=== PATIENT | male | born 1985 | race Caucasian/White ===

== ENCOUNTER 2019-11-11 08:18 | Outpatient (CLI) | payer OTHER, SELFPAY ==
--- NOTE | ~2019-11-11 | XR_ITS ---
EXAMINATION: HAND-REY ARTHRITIS 3+VIEWS DATE: 11/11/2019 08:39 INDICATION: Joint pain at the bilateral hands. TECHNIQUE: Posteroanterior, lateral, and oblique views of the left and of the right hands as well as a ball-catcher's view of both hands were obtained. COMPARISON: Right hand radiographs dated 07/09/2019 FINDINGS: Bone alignment is normal at both hands. No fractures. Joint spaces are normal throughout both hands w ith no evident erosions or osteophytosis. Soft tissues are unremarkable. IMPRESSION: 1. Normal bilateral hand radiographs. Reviewed, dictated and finalized at location A.
[2019-11-11 09:02] LABS: Basophils Absolute Auto 0.1 K/mm3 (0.0-0.1); Basophils Percent Auto 0.5 % (0.2-1.2); Eosinophils Absolute Auto 0.2 K/mm3 (0-0.3); Eosinophils Percent Auto 2.5 % (0-4.4); Hematocrit 45.6 % (42.0-52.0); Hemoglobin 14.7 g/dL (14.0-18.0); Immature Granulocyte Absolute 0.02 K/mm3 (0.00-0.031); Immature Granulocyte Percent A 0.2 % (0-0.5); Lymphocytes Absolute Auto 3.68 K/mm3 (0.9-3.2); Lymphocytes Percent Auto 40.1 % (18.3-44.2); Mean Corpuscular HGB Conc 32.2 g/dl (32-36); Mean Corpuscular Hemoglobin 27.8 pg (26-34); Mean Corpuscular Volume 86.2 fl (80-100); Mean Platelet Volume 9.9 fl (7.4-10.4); Monocytes Absolute Auto 0.6 K/mm3 (0.1-0.6); Monocytes Percent Auto 6.9 % (2.6-8.5); Neutrophils Absolute Auto 4.6 K/mm3 (1.3-6.7); Neutrophils Percent Auto 49.8 % (45.5-73.1); Platelet Count Result 282 k/mm3 (150-375); Red Blood Count 5.29 M/mm3 (4.6-6.20); Red Cell Distribution Width 12.8 % (11.5-14.5); White Blood Count 9.2 K/mm3 (4.5-10.0)
[2019-11-11 09:52] LABS: Erythrocyte Sedimentation Rate 7 mm/hr (0-20)
[2019-11-11 10:01] LABS: Alanine Aminotransferase 45 U/L (4-50); Albumin Level 4.6 g/dL (3.5-5.1); Alkaline Phosphatase 106 U/L (38-126); Aspartate Amino Transferase 39 U/L (17-59); Bilirubin,Total 0.3 mg/dL (0.2-1.3); Blood Urea Nitrogen 12 mg/dL (9-20); CRP 1.5 mg/dL (<1.0); Calcium 9.2 mg/dL (8.4-10.2); Carbon Dioxide 27 mmol/L (22-30); Chloride 106 mmol/L (98-107); Estimated Glomerular Filt Rate > 60; Glucose 96 mg/dL (75-110); Potassium 4.1 mmol/L (3.4-5.0); Sodium 139 mmol/L (137-145); Uric Acid 8.5 mg/dL (3.5-8.5)
== END 2019-11-11 08:19 | disposition home or self-care (01) ==
PROVIDERS: PCP Family Medicine; Visit Provider Family Medicine
DX: M79.643 Pain in unspecified hand (principal)
CPT/HCPCS: 36415; 73130; 80053; 82607; 82746; 84443; 84550; 85025; 85652; 86038; 86140

== ENCOUNTER 2020-03-09 10:40 | Outpatient (CLI) | payer BC, OTHER, SELFPAY ==
--- NOTE | ~2020-03-09 | XR_ITS ---
XR lumbar spine 2-3V 03/09/2020 11:01 Indication: Low back pain. Procedure: 3 views lumbar spine Comparison: No prior studies for comparison. Findings: No fracture, subluxation or dislocation. Vertebral body and disc heights are preserved. No evidence for spondylolysis or spondylolisthesis. Pedicles intact. Sacral foramen are symmetric. Impression: 1: No significant abnormality of the lumbar spine. Reviewed, dictated and finalized at location B. Impression: 1: No significant abnormality of the lumbar spine.
== END 2020-03-09 10:41 | disposition home or self-care (01) ==
PROVIDERS: PCP Family Medicine; Visit Provider Family Medicine
DX: M54.9 Dorsalgia, unspecified (principal); R20.0 Anesthesia of skin
CPT/HCPCS: 72100

== ENCOUNTER 2020-08-03 08:17 | Outpatient (CLI) | payer BC, SELFPAY ==
--- NOTE | ~2020-08-03 | MR_ITS ---
EXAMINATION: MR ankle LT wo con DATE: 08/03/2020 08:58 INDICATION: Unexplained plantar fasciitis presenting with lateral left heel pain. TECHNIQUE: Magnetic resonance imaging (MRI) of the left ankle was performed without intravenous contr ast. Sequences included sagittal, coronal, and axial proton-density weighted fast spin echo without a nd with fat saturation. COMPARISON: None. FINDINGS: Medial ankle ligaments: Deep and superficial deltoid ligaments as well as the spring ligament are normal. Lateral ankle ligaments: The anterior and posterior inferior tibiofibular ligaments are normal. The anterior talofibular, calc aneofibular and posterior talofibular ligaments are normal. Tendons: Achilles tendon is normal. The peroneus longus and brevis tendons are normal. The tibialis anterior a nd extensor hallucis longus and extensor digitorum longus tendons are normal. The tibialis posterior, flexor digitorum longus and flexor hallucis longus tendons are normal. Plantar fascia: Minimal marrow and soft tissues edema at the calcaneal insertion of the otherwise normal plantar apon eurosis consistent with very mild enthesitis. No tear of the plantar aponeurosis. Bones/other: Bone marrow signal is otherwise normal throughout. No fracture or pathologic marrow replacing process . Bone alignment is normal. Joint spaces are normal with no erosions. Fluid: Physiologic amount fluid in the joint spaces no tenosynovitis, bursitis or other abnormal fluid colle ctions. IMPRESSION: 1. Very mild enthesitis at the calcaneal origin of the plantar aponeurosis. Reviewed, dictated and finalized at location A. [employer]
== END 2020-08-03 08:18 ==
PROVIDERS: PCP Family Medicine; Visit Provider Podiatrist Foot & Ankle Surgery
DX: M72.2 Plantar fascial fibromatosis (principal); M77.8 Other enthesopathies, not elsewhere classified
CPT/HCPCS: 73721

== ENCOUNTER → 2020-10-10 03:42 | Outpatient (CLI) | payer BC, SELFPAY ==
[2020-10-10 20:31] LABS: SARS-CoV-2 RNA PCR Negative
== END ==
PROVIDERS: PCP Family Medicine; Visit Provider Podiatrist Foot & Ankle Surgery
DX: Z01.812 Encounter for preprocedural laboratory examination (principal); Z20.822 Contact with and (suspected) exposure to COVID-19
CPT/HCPCS: C9803; U0003; U0005

== ENCOUNTER 2020-10-13 01:44 | Day surgery (SDC) | payer BC, SELFPAY ==
[2020-10-04 08:40] VITALS: BMI 45.6
[2020-10-13] VITALS (8 sets, daily range): BP systolic 126–140; BP diastolic 75–90; PULSE 84–96; RESP 17–20; TEMP 36.6–36.7; O2SAT 93–100; BMI 46.3
--- NOTE | 2020-10-13 06:49 | WPDANESEPPF ---
Anes - Initial Pre Proc Eval Procedure: Operation Date: 10/13/20 07:30 Proposed Procedures p Partial Plantar Fasciectomy, Left Foot - John Jc JR, MD Date/Time: 10/13/20 06:49 Surgeon: John Jc JR, MD Pre Op Diagnosis: chronic plantar fasciitis left foot Patient Data Age: 35 Gender: M Height: 5 ft 8 in Weight: 138.1 kg Allergies Allergy/AdvReac Type Severity Reaction Status Date / Time tramadol AdvReac Unknown Vomiting Verified 10/13/20 06:09 Home Medications Medication Instructions Recorded Confirmed Type fexofenadine 180 mg tablet 180 mg PO BID 06/09/19 10/13/20 History naproxen sodium 220 mg tablet 220 mg PO BID PRN 03/07/20 10/13/20 History duloxetine 30 mg capsule,delayed 60 mg PO HS cap 06/08/20 10/13/20 History release hydroxyzine HCl 100 mg tablet 25 mg PO HS PRN tablet 06/08/20 10/13/20 History aripiprazole 2 mg tablet 2 mg PO HS 08/15/20 10/13/20 History cholecalciferol (vitamin D3) 1,250 1,250 mcg PO WEEKLY #12 cap 08/30/20 10/13/20 Rx mcg (50,000 unit) capsule Patient hx anesthesia problems: none Family hx anesthesia problems: none PMFSH Past Medical History Medical History Allergic rhinitis Hyperglycemia Hyperlipidemia Morbid obesity Recurrent otitis media Surgical History Surgical History (Updated 10/13/20 @ 06:52 by Memo Gomes MD) Appendicitis History of cholecystectomy Hx of tympanostomy tubes Family History Family History Grandparent Diabetes mellitus Social History Social History Smoking packs per day: 1 Smoking cigarettes per day: 20.0 Years smoked: 12 Smoking pack-years: 12.00 Smoking status: Former smoker Smoking end date: 06/23/12 Alcohol intake: never Substance use: never Substance use type: does not use Living arrangements: with family Gender identity (if verbalized by the patient): Male Spiritual care concerns: No Agree to blood products: Yes Anes - Eval Final PreProcedure Day of Procedure 10/13/20 06:49 Patient weight: morbidly obese Heart: regular rate and rhythm Lungs: clear to auscultation Airway: Mallampati scale class II Neurological: alert and oriented Last oral intake: >/= 8 hours ASA classification: III Emergent: no Anesthetic plan: proceed Anesthesia type and monitoring: general LMA and standard monitoring Informed Consent: The patient's anesthetic plan and its attendant risks and benefits were discussed with the patient/family/POA. Questions were solicited and answers provided to the satisfaction of the patient/family/POA.
[2020-10-13] MEDS: LACTATED RINGERS 1,000 ML 30 ML IV CONT (06:50)
--- NOTE | 2020-10-13 07:13 | WPDHPUPDATE1 ---
History and Physical Update Update Date/Time: 10/13/20 07:13 History and Physical has been reviewed, including an updated exam of the patient. There are NO changes in the patient's condition. Risks, benefits, and alternatives have been discussed and questions answered. Patient agrees to proceed with procedure.
[2020-10-13] MEDS: ceFAZolin 3 GM/D5W 100 ML 100 ML IVPB (07:26)
[2020-10-13] MEDS: KETOROLAC 30 MG/ML VIAL (*BKC) IV PUSH (07:52)
--- NOTE | 2020-10-13 08:17 | PM.PROC ---
Procedure Note - Detailed Date of procedure: 10/13/20 Pre-op diagnosis: chronic plantar fasciitis left foot Chronic plantar fasciitis left foot Post-op diagnosis: same Procedure performed: Partial plantar fasciectomy left foot Anesthesia: GLMA and local Surgeon: John Jc JR, DPM Estimated blood loss (mL): 1 Drains: No Packing: No Pathology: none sent Complications: No immediate complications Condition: stable Disposition: same day Findings: Under mild sedation, the patient was brought in to the operating room, placed on the operating table in the supine position. A pneumatic ankle tourniquet was placed about the patient's left ankle. Following general anesthesia, local anesthesia was obtained about the left foot utilizing 20 mL of Exparel to the tibial nerve and along the inferior heel. The foot was then scrubbed, prepped, and draped in the usual aseptic manner. An Esmarch bandage was then used to exsanguinate the patient's foot and the pneumatic ankle tourniquet was then inflated. Next, an incision was made starting distal to the medial tubercle of the calcaneus extending distally 3cm. All bleeders were cauterized as necessary. Next the dissection was continued down to the plantar fascia it was exposed medially and laterally with [employer] [place] retractors. The medial two third of the plantar fascia was transected and a 4mm portion was also resected. The wound site was flushed with sterile saline. The deep subcutaneus tissue was reapproximated with 3-0 Vicryl and the skin was reapproximated with 2.0 Prolene and 3.0 Prolene in Vertical mattress and Simple interrupted suture technique. Upon completion of the procedure, the dorsal incision was dressed with Steri-Strips, Adaptic, 4x4s, Kerlix, and Coban, the plantar incision was dressed with adaptic, 4.4 gauze, kerlix and coban. The pneumatic ankle tourniquet was then deflated and a prompt hyperemic response was noted to all digits of the left foot. The surgical shoe was then applied. The patient did very well with the procedure and the anesthesia. She was transferred to the recovery room with vital signs stable and vascular status intact to all toes of the affected foot. Following a period of postoperative monitoring, the patient will be discharged home on the following written and oral postoperative instructions: 1. The patient should keep the dressing clean, dry, and intact. Use a cast protector bag with showers. 2. The patient will be strictly protected weight bearing with a CAM walker boot. 3. Patient should ice and elevate the left foot when at rest. 4. The patient is to contact Dr. Jc for all postop care and if any problems arise. 5. Prescriptions were written for Percocet 5/325 dispensed 40 to be taken 1 p.o. q.4-6 hours as needed for severe pain.
== END 2020-10-13 09:53 | disposition home or self-care (01) ==
PROVIDERS: PCP Family Medicine; Visit Provider Podiatrist Foot & Ankle Surgery
PROC: (CPT 28119; principal; 2020-10-13 07:30)
DX: M72.2 Plantar fascial fibromatosis (principal); R73.9 Hyperglycemia, unspecified; E78.5 Hyperlipidemia, unspecified; Z87.891 Personal history of nicotine dependence; E66.01 Morbid (severe) obesity due to excess calories; Z68.42 Body mass index [BMI] 45.0-49.9, adult
CPT/HCPCS: 28060; C9290; J0690; J1100; J1170; J1885; J2250; J2405; J2704; J3010; J7120

== ENCOUNTER 2022-01-25 00:31 | Day surgery (SDC) | payer BC, SELFPAY ==
[2022-01-08 09:37] VITALS: BMI 49.1
--- NOTE | 2022-01-24 13:50 | SUR.PREOP ---
pt called and notified to not take magnesium citrate d/t a recall. pt verbalized understanding.
[2022-01-25 09:59] VITALS: BP 130/85; PULSE 70; RESP 16; TEMP 36.3; O2SAT 98; BMI 48.3
[2022-01-25] MEDS: LACTATED RINGERS 1,000 ML 150 ML IV CONT (10:10)
--- NOTE | 2022-01-25 10:13 | WPDHPUPDATE1 ---
History and Physical Update Update Date/Time: 01/25/22 10:13 History and Physical has been reviewed, including an updated exam of the patient. There are NO changes in the patient's condition. Risks, benefits, and alternatives have been discussed and questions answered. Patient agrees to proceed with procedure.
--- NOTE | 2022-01-25 10:36 | WPDANESEPPF ---
Anes - Initial Pre Proc Eval Procedure: Operation Date: 01/25/22 11:00 Proposed Procedures p Esophagogastroduodenoscopy & Colonoscopy - Joshua Uribe MD Date/Time: 01/25/22 10:36 Surgeon: Joshua Uribe MD Pre Op Diagnosis: GERD, diarrhea Patient Data Age: 36 Gender: M Height: 1.73 m Weight: 144.2 kg Last Vital Signs Temp 97.3 F L 01/25/22 09:59 Pulse 70 01/25/22 09:59 Resp 16 01/25/22 09:59 BP 130/85 01/25/22 09:59 Pulse Ox 98 01/25/22 09:59 O2 Del Method Room Air 01/25/22 09:59 Allergies Allergy/AdvReac Type Severity Reaction Status Date / Time tramadol AdvReac Unknown Vomiting Verified 01/25/22 09:58 Home Medications Medication Instructions Recorded Confirmed Type fexofenadine 180 mg tablet 180 mg PO BID 06/09/19 01/25/22 History ([place] Allergy) duloxetine 30 mg capsule,delayed 60 mg PO HS 06/08/20 01/25/22 History release (Cymbalta) fluticasone propionate 50 2 spray intranasal PRN PRN Sinus 11/09/20 01/25/22 History mcg/actuation nasal Symptoms spray,suspension omeprazole 40 mg capsule,delayed 40 mg PO DAILY #30 caps 01/02/22 01/25/22 Rx release peg 3350-electrolytes 236 240 ml PO Q10M #4,000 mL 01/04/22 01/25/22 Rx gram-22.74 gram-6.74 gram-5.86 gram solution (Golytely) Lactobacillus rhamnosus GG 10 1 cap PO DAILY #90 caps 01/07/22 01/25/22 Rx billion cell capsule (Culturelle) cholecalciferol (vitamin D3) 125 125 mcg PO DAILY #90 caps 01/07/22 01/25/22 Rx mcg (5,000 unit) capsule ferrous sulfate 325 mg (65 mg 325 mg PO DAILY #90 tabs 01/07/22 01/25/22 Rx iron) tablet sildenafil 50 mg tablet See Rx Instructions .Route 01/07/22 01/25/22 Rx .COMPLEX #30 tabs testosterone undecanoate 112.5 mg 225 mg PO QAM AND QPM 01/07/22 01/25/22 History capsule cholestyramine-aspartame 4 gram 4 g PO BID 01/08/22 01/25/22 History oral powder for susp in a packet (Cholestyramine Light) Patient hx anesthesia problems: none Family hx anesthesia problems: none Results Review: All pre-operative results and documents have been reviewed as part of the pre-operative evaluation. [facility] Past Medical History Medical History Allergic rhinitis Asthma Hyperglycemia Hyperlipidemia Morbid obesity Recurrent otitis media Surgical History Surgical History History of appendectomy History of cholecystectomy History of foot surgery Hx of tympanostomy tubes Family History Family History Grandparent Diabetes mellitus Mother Patient's mother is in good health Father Patient's father is in good health Social History Social History (Updated 01/08/22 @ 09:32 by Kathrin Zuniga RN) Smoking packs per day: 1 Smoking cigarettes per day: 20.0 Years smoked: 12 Smoking pack-years: 12.00 Smoking status: Former smoker Tobacco type: cigarettes Second hand tobacco smoke exposure: No Smoking end date: 06/23/12 Alcohol intake: current Drinks per week: 12 Alcohol use details: 2-20 beers weekly Substance use: never Substance use type: does not use Living arrangements: with family 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
--- NOTE | 2022-01-25 11:33 | SUR.OPER ---
EGD START 1116, END 1119 COLONOSCOPY START 1125, END 1133
[2022-01-25 11:39] VITALS: BP 112/74; PULSE 68; RESP 18; O2SAT 98
[2022-01-25 11:49] VITALS: BP 115/75; PULSE 65; RESP 17; O2SAT 98
[2022-01-25 11:59] VITALS: BP 117/80; PULSE 63; RESP 21; O2SAT 98
--- NOTE | 2022-01-25 12:29 | SUR.PHASEII ---
Patient waiting to speak to Dr. Uribe before being discharged.
== END 2022-01-25 12:32 | disposition home or self-care (01) ==
PROVIDERS: PCP Family Medicine; Visit Provider Internal Medicine Gastroenterology
PROC: 0DJ08ZZ Inspection of Upper Intestinal Tract, Via Natural or Artificial Opening Endoscopic (ICD-10-PCS; CPT 43235; principal; 2022-01-25 11:00)
DX: K59.1 Functional diarrhea (principal); R10.9 Unspecified abdominal pain; J45.909 Unspecified asthma, uncomplicated; K21.9 Gastro-esophageal reflux disease without esophagitis; R10.31 Right lower quadrant pain; E78.5 Hyperlipidemia, unspecified; R73.9 Hyperglycemia, unspecified; Z90.49 Acquired absence of other specified parts of digestive tract; Z87.891 Personal history of nicotine dependence; F12.90 Cannabis use, unspecified, uncomplicated; K42.9 Umbilical hernia without obstruction or gangrene; R11.0 Nausea; E66.01 Morbid (severe) obesity due to excess calories; Z68.42 Body mass index [BMI] 45.0-49.9, adult
CPT/HCPCS: 45380; 43239; 87081; 88305; J2704; J7120

== ENCOUNTER 2022-02-19 08:43 | Outpatient (CLI) | payer BC, SELFPAY ==
--- NOTE | 2022-03-19 20:11 | WPDSLEEPSTUD ---
Sleep Study Date of Study: 02/19/22 Ordering Provider: Cheri Shaw DO Interpreting Physician: Katharina Maldonado DO Sleep Study Type: Polysomnogram Height: 1.75 m Weight: 99.337 kg Body Mass Index: 32.3 Neck Circumference (inches): 17.5 [place]: 19 Reason for Sleep Study Daytime hypersomnia and unrefreshing sleep Sleep History The patient is a 36 year old with depression, anxiety, GERD, anemia, erectile dysfunction and history of tobacco use a sleep study ordered his primary care physician for evaluation sleep apnea. 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 The patient rarely awakens from sleep short of breath. He occasionally awakens at night with heartburn, belching or cough. He constantly snores but it is occasionally loud that others. He constantly has trouble sleeping when he has a cold. He rarely wakes up gasping for air throughout the night. He occasionally has breathing problems at night observed by himself or others. He constantly sweats excessively at night. He rarely has heart palpitations or irregular heartbeats during the night. He constantly falls asleep during the day but never while driving. He denies cataplexy. He constantly has trouble at school or work due to sleepiness. He constantly feels unable to waking up or falling asleep. He occasionally experiences vivid dreamlike scenes upon awakening or falling asleep. He denies feeling afraid of to sleep. He rarely has nightmares. He rarely remembers his dreams. He occasionally has racing through his mind. He occasionally feels sad, depressed or anxious. He occasionally has muscular tension. He occasionally notices parts of his body jerk. He occasionally kicks during the night. He occasionally has crawling and aching feelings in his legs and occasionally has leg pain during the night. He denies grinding his teeth during sleep and awakening with morning jaw pain. He is rarely bothered by pain during the day and rarely awakened by pain during night. He rarely wakes feeling stiff morning. He rarely wakes up with sore achy muscles. He rarely wakes up with pain in the neck, spine or other joints. He goes to bed between 8-9 p.m. on both weekdays and weekends. He is able to fall asleep within 10 minutes. He wakes up 4-5 times throughout the night for unknown reasons. It takes him 10-45 minutes to fall back asleep. He wakes up at 4:00 a.m. on both weekdays and weekends. He typically gets 7-8 hours of sleep per night. He will stay in bed for 30-45 minutes after waking up in the morning. He currently lives with his and 2 children. He does not consume any caffeinated beverages within 2 hours of bedtime. He will engage in physical exercise before bedtime. He denies reading and watching television before falling asleep. He will take naps in the afternoon the evening and they are refreshing. He drinks 1-2 caffeinated beverages per day. He drinks 2 to 18 alcoholic beverages per week. He quit smoking cigarettes several years ago. He denies recreational drug use. [facility] Past Medical History Medical History Allergic rhinitis Asthma Hyperglycemia Hyperlipidemia Morbid obesity Recurrent otitis media Surgical History Surgical History History of appendectomy History of cholecystectomy History of colonoscopy 01/25/22 History of foot surgery Hx of tympanostomy tubes Family History Family History Grandparent Diabetes mellitus Mother Patient's mother is in good health Father Patient's father is in good health Social History Social History Smoking packs per day: 1 Smoking cigarettes per day: 20.0 Years smoked: 12 Smoking pack-years: 12.00 Smoking status: Former smoker Tobacco type: cigarettes Second
[2022-03-19 20:27] VITALS: BMI 32.3
== END 2022-02-20 05:17 | disposition home or self-care (01) ==
LOC: ANHCSM 08:45
PROVIDERS: PCP Family Medicine; Visit Provider Family Medicine
DX: G47.33 Obstructive sleep apnea (adult) (pediatric) (principal); R40.0 Somnolence
CPT/HCPCS: 95810

== ENCOUNTER 2023-10-15 08:00 | Outpatient (RCR) | payer OTHER, SELFPAY ==
--- NOTE | 2023-07-31 08:50 | PTOPEVAL1 ---
Assessment and note entered by Lois Zuniga, PT Evaluation Information Assessment Status Evaluation Diagnosis patellofemoral dis. unspec, unspec tear of meniscus, current, unspec knee Pain in left knee stiffness in left knee Onset ~ 3 months Subjective Information Does not recall an injury, could have been walking and turned wrong States touching, pushing on knee, bending knee to far or deep squat is very painful Works in [employer] for [employer], has to be able to get into and out of all kinds of positions , lift and carry 50 lbs required by work but doesn 't normally have to lift this heavy. Has equipment to assist. Deep squats and pressure to the left side and front of the knee are the only time sit hurts. Reports discomfort is a pulling sensation in deep squat. No pain with stairs or with knee extended Depending on activity during the day will greatly effect pain. Reported Pain Level Pain Score 0: Self Report Assessment PT Clinical Summary Pt presents with c/o left knee pain that has persisted approx 3 months without traumatic incident. Evaluation shows very poor flexibility in LEs, patellar deviation, poor ankle/lower leg alignment. Pt will greatly benefit from physical therapy in order to address deficits, educate patient on appropriate modifications, reduce pain, and return patient to PLOF. Plan of Care Interventions Check Out for Orthotic/Pr,Electrical Stimulation, Hot Pack/Cold Pack,Manual Therapy,Neuro Re- education,Patient/Caregiver Educati,Therapeutic Activities,Therapeutic Exercise,Ultrasound Other Interventions Taping PT Services Indicated Yes Treatment Frequency and 1-2x weekly x 8 weeks Duration These treatments will address the objective and functional deficits as defined above. The patient will be advanced safely and appropriately in order for the patient to progress towards his/her prior level of function. Additional exercises will be introduced and as well as a comprehensive home exercise program upon discharge, if needed, ?to ensure carryover of functional gains achieved in the clinic. This treatment plan has been reviewed and agreement upon by the patient.
--- NOTE | 2023-07-31 08:50 | OPREHPOC ---
Outpatient Therapy Plan of Care This is a Multidisciplinary Plan of Care that may contain components documented by all disciplines (PT, OT, and ST.) PT Problem 1 PT Problem #1 Knowledge Deficit PT Goal 1 Goal Pt will be independent in HEP Pt will verbalize understanding of diagnosis and prognosis Target Visit 12 PT Problem 2 PT Problem #2 Pain PT Goal 1 Goal Pt will report greatest pain level at 3/10 or less to improve ADLs and activities Target Visit 6 PT Goal 2 Goal Pt will report resolution of pain to return to PLOF Target Visit 12 PT Problem 3 PT Problem #3 Impaired Flexibility PT Goal 1 Goal Will demo increased in hamstring and quads flexibility by 10 degrees Target Visit 12 PT Goal 2 Goal Pt will demo gastroc/soleous flexibility of mild deficit Target Visit 12 PT Problem 4 PT Problem #4 Impaired Endurance PT Goal 1 Goal Pt will report ability to tolerate new show inserts all day without increased foot/knee pain Target Visit 12
--- NOTE | 2023-09-04 12:05 | PTOPPROG ---
Assessment and note entered by Lois Zuniga, PT Assessment Status Progress Report Diagnosis patellofemoral dis. unspec, unspec tear of meniscus, current, unspec knee Pain in left knee Onset ~ 3 months Subjective Information Has made progress. Is able to kneel, is able to squat. Takes a little time to get there into position and a little effort to get up, not like used to be but on doesn't feel like it's ripping apart . Touching and pushing on it is still a little tender but can tolerate more. Reports is about 45% improved. States because still has to move knee down slowly and is worried if moves to fast will have the pain Pt reports will still have pain up to an 8/10 but is less instances and does not last as long. Does his stretches daily but states every day feels like a new day, doesn't feel like flexibility is improving between days. Assessment PT Clinical Summary Pt reports feeling he is having severe pain less often, is not as tender as previously, is now able to squat and kneel carefully, and no longer feels like it's ripping apart with these motions. Michael's improvement in knee ROM, and flexibility of multiple muscles however pain continues. Today it was noted patient also michael's tight hip joints bilat, has a history of back pain, and possible leg length discrepancy, and decreased TRAM activation/strength. Pt will benefit from continued therapy with addition of phonophoresis, slight shift in focus in bilat hip ROM and lumbar stability in order to offload the tension of the left illiotibial band and reduce pain, and return patient to PLOF. Plan of Care Interventions Check Out for Orthotic/Pr,Electrical Stimulation, Hot Pack/Cold Pack,Manual Therapy,Neuro Re- education,Patient/Caregiver Educati,Therapeutic Activities,Therapeutic Exercise,Ultrasound Other Interventions phonophoresis PT Services Indicated Yes Treatment Frequency and 1x weekly x 8 visits Duration These treatments will address the objective and functional deficits as defined above. The patient will be advanced safely and appropriately in order for the patient to progress towards his/her prior level of function. Additional exercises will be introduced and as well as a compr
--- NOTE | 2023-10-15 18:11 | PTOPPROG ---
Assessment and note entered by Lois Zuniga, PT Evaluation Information Assessment Status Progress Diagnosis patellofemoral dis. unspec, unspec tear of meniscus, current, unspec knee Onset ~ 3 months Subjective Information Pt states he feels he is still improving. Normal days his pain will go up to 3-4/10 but on days he is highly active at work pain still goes up to a 9 /10. Greatest difficulty is still with squatting, and getting up from kneeling at work. Will have 0/10 when first waking in the morning, but with weight on legs discomfort starts. Feels he has seen a difference with shift in focus after last reevaluation. Assessment PT Clinical Summary Pt continues to make slow progress overall. Limited due to decreased frequency thus longer duration. Pt has consistently presented to therapy and given full effort, appears to be following home exercises and therapy instruction. Cont to demo significant deficits in knee alignment, flexibility, joint ROM, soft tissue density and discomfort related. Demo's difficulty with mobility in kneeling, half-kneeling, and deep squat today due to restrictions in joint ROM, pain , and stability with kneel>stand without UE assist . Pt decreased from LEFS score of 49 and 44 % perceived disability to 34% with change in focus to phonophoresis and soft tissue remodeling. Pt will benefit from continued therapy to improve soft tissue health, ROM, and mobility however will also benefit from scheduling further imaging and specialist referral in order to assess most efficient and most appropriate procedures moving forward to meet patient's goals. Plan of Care Interventions Check Out for Orthotic/Pr,Electrical Stimulation, Hot Pack/Cold Pack,Manual Therapy,Neuro Re- education,Patient/Caregiver Educati,Therapeutic Activities,Therapeutic Exercise,Ultrasound Other Interventions phonophoresis PT Services Indicated Yes Treatment Frequency and continue 1-2x weekly x 12 visits Duration These treatments will address the objective and functional deficits as defined above. The patient will be advanced safely and appropriately in order for the patient to progress towards his/her prior level of function. Additional exercises will be introduced and as well as a comprehensive home exercise program upon discharge, if needed, ?to ensure carryover of functional gains achieved in the clinic. This treatment plan has be
--- NOTE | 2023-11-14 14:49 | PCPTNOTE ---
Admitting Provider: Attending Provider: Franki Bynum MD Patient:Daron Willett Date of :1985 Patient has not returned for any further treatments since 10/15/2023, therefore (he/she) will be discharged at this time. Patient?s initial visit was on 07/31/2023 and he attended therapy consistently at 1x weekly for many weeks. This last round of therapy we added iontophoresis to his plan of care which appeared to help significantly. Overall he made good progress with significant reduction in pain however continued to have pain with his work related activities. Also reported he felt that even though he stretched daily was making no progress in flexibility. Most recent evaluation showed multilevel musculoskeletal dysfunction to which pt was educated on continuation of therapy in conjunction with chiropractic in order to attempt to meet overall functional and pain gains. However pt has decided not to return to physical therapy at this time. Thus we are discharging per patient request. Thank you for referring this patient to [facility]. Please review, sign, date and return this discharge summary RAUL. I have been updated about the patient's current status and I agree with discharge from the above service at this time. Referring Physician Date
== END 2023-10-29 23:59 | disposition home or self-care (01) ==
LOC: ANHHIPT 08:00
PROVIDERS: PCP Family Medicine; Visit Provider Family Medicine
DX: M22.2X9 Patellofemoral disorders, unspecified knee (principal); S83.209A Unspecified tear of unspecified meniscus, current injury, unspecified knee, initial encounter
CPT/HCPCS: 97014; 97035; 97110; 97112; 97140; 97161; 97750; G0283

== ENCOUNTER 2024-02-20 10:45 | Emergency (ER) | payer OTHER, SELFPAY ==
[2024-02-20 11:01] VITALS: BP 106/63; PULSE 71; RESP 18; TEMP 36.8; O2SAT 97
--- NOTE | 2024-02-20 11:08 | ED.WOUNDLAC ---
HPI - Wound/Laceration General Chief Complaint: Wound/Laceration Stated Complaint: Abrasion to Left fore arm Time Seen by Provider: 02/20/24 11:08 Source: patient Mode of arrival: ambulatory Limitations: no limitations History of Present Illness HPI narrative: 38 yo M presents with c/o multiple superficial lacerations to L forerarm. Bleeding controlled. NV and ROM intact. Unknwon last tetanus. Pt trying to keep dog and child from getting out screeen door and his L arm went through glass. all systems reviewed and negative except as noted above. Related Data Home Medications Medication Instructions Recorded Confirmed fexofenadine 180 mg tablet 180 mg PO BID 06/09/19 01/25/22 ([facility]) triamcinolone acetonide 55 mcg 1 spray intranasal DAILY 09/09/23 nasal spray aerosol (N[facility]ergy) Allergies Allergy/AdvReac Type Severity Reaction Status Date / Time tramadol AdvReac Unknown Vomiting Verified 02/20/24 11:10 Review of Systems Review of Systems: CONSTITUTIONAL: Denies fever, chills, or sweats. EYES: Denies visual changes, redness, or discharge. ENT: Denies rhinorrhea, congestion, sore throat, or otalgia. CARDIOVASCULAR: Denies chest pain, palpitations, or edema. RESPIRATORY: Denies cough or dyspnea. GASTROINTESTINAL: Denies abdominal pain, nausea, vomiting, or diarrhea. GENITOURINARY: Denies dysuria or hematuria. SKIN: Denies rash or itching. reports laceration to L forearm MUSCULOSKELETAL: Denies back pain, joint pain, or myalgia. NEUROLOGIC: Denies headache, numbness, or weakness. PSYCHIATRIC: Denies anxiety or depression. All other systems reviewed are negative, except as documented in HPI. [facility] Past Medical History Medical History (Updated 02/20/24 @ 11:35 by Deb Veras NP) Acute meniscal tear of knee Allergic rhinitis Asthma Encounter for screening for malignant neoplasm of prostate Hyperglycemia Hyperlipidemia Left hip pain Morbid obesity Otitis externa Otitis media Patella-femoral syndrome Recurrent otitis media Testosterone deficiency URI (upper respiratory infection) Surgical History Surgical History History of appendectomy History of cholecystectomy History of colonoscopy 01/25/22 History of foot surgery Hx of tympanostomy tubes Family History Family History Grandparent Diabetes mellitus Mother Patient's mother is in good health Father Patient's father is in good health Social History Social History (Updated 07/16/23 @ 11:20 by Tamanna Gaming [facility]) Smoking packs per day: 1 Smoking cigarettes per day: 20.0 Years smoked: 12 Smoking pack-years: 12.00 Smoking status: Former smoker Tobacco type: cigarettes Second hand tobacco smoke exposure: No Smoking end date: 06/23/12 Alcohol intake: current Drinks per week: 12 Alcohol use details: 2-20 beers weekly Substance use: never Substance use type: does not use Do You Feel Safe in your Home?: Yes Lack of Transportation: No Lack of Food: Never True Current Housing: I Have Housing Concerned About Future Housing: No Difficulty Paying Gas/Electric Bills: No Difficulty Paying for Meds: No Currently Unemployed: No Education: Don't Know Difficulty w/ Childcare or Family Care: No Living arrangements: with family Occupation/Education: occupation Additional occupation/education comments: [employer]PLIED 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 There is no relevant family history pertinent to the presenting complaint. Exam Narrative: GENERAL: This is a well-nourished, well-developed patient, in no apparent distress. HEAD: normocephalic, atraumatic. EYES: PERRL. Scle
[2024-02-20] MEDS: TETANUS,DIPHTHERIA,AC PERTUSSIS ADULT (0.5 ML) BOOSTRIX IM (11:39)
== END 2024-02-20 11:42 | disposition home or self-care (01) ==
PROVIDERS: Emergency Provider Nurse Practitioner Family; PCP Emergency Medicine
DX: S51.812A Laceration without foreign body of left forearm, initial encounter (principal); W25.XXXA Contact with sharp glass, initial encounter; Z23 Encounter for immunization; Z87.891 Personal history of nicotine dependence; J45.909 Unspecified asthma, uncomplicated; E78.5 Hyperlipidemia, unspecified; E66.01 Morbid (severe) obesity due to excess calories; Z68.42 Body mass index [BMI] 45.0-49.9, adult
CPT/HCPCS: 90471; 90715; 99212; G0463